=== PATIENT | female | born 1960 | race Caucasian/White ===

== ENCOUNTER 2018-05-27 17:49 | Emergency (ER) | payer OTHER ==
[2018-05-27 17:59] VITALS: BP 149/87; PULSE 83; TEMP 97.9; BMI 22.1
[2018-05-27 18:12] LABS: URINE APPEARANCE CLEAR; URINE BILIRUBIN NEGATIVE (<2.0 mg/dL); URINE COLOR STRAW; URINE GLUCOSE (UA) NEGATIVE (NEGATIVE); URINE KETONE NEGATIVE (NEGATIVE); URINE LEUK ESTERASE NEGATIVE (NEGATIVE); URINE NITRITE NEGATIVE (NEGATIVE); URINE PROTEIN NEGATIVE (NEGATIVE); URINE UROBILINOGEN NEGATIVE mg/dL (0.2-1.0)
--- NOTE | 2018-05-27 18:18 | PDOC ---
History of Present Illness - General Chief Complaint: Urinary Problem Stated Complaint: L.sided abd pain with nausea Time Seen by Provider: 05/27/18 18:17 - History of Present Illness Initial Comments: 05/27/18 18:59 Ms. Manuel is a 57 yo female w/ pmh of HTN who presents for evaluation of 4 day history of left sided abdominal pain. She reports the pain is intermittent and has been accompanied by mild nausea. Denies any other associated symptoms however reports she often has constipation and has not had a BM since Monday. She has taken motrin and tylenol at home without any relief from symptoms and reports she has been urinating frequently over this time period as well. The patient denies chest pain, shortness of breath, headache and dizziness. Denies fever, chills, nausea, vomit, and diarrhea. Denies dysuria, urgency and hematuria. Allergies: NKDA Past History - Past Medical History Allergies/Adverse Reactions: Allergies Allergy/AdvReac Type Severity Reaction Status Date / Time strawberry Allergy Verified 05/27/18 17:58 Home Medications: Ambulatory Orders Aspirin 81 mg PO DAILY 05/27/18 Losartan Potassium [Cozaar -] 50 mg PO DAILY 05/27/18 COPD: No DVT: No - Suicide/Smoking/Psychosocial Hx Smoking History: Never smoked Have you smoked in the past 12 months: No Information on smoking cessation initiated: No Hx Alcohol Use: No Drug/Substance Use Hx: No Substance Use Type: None Review of Systems - Review of Systems Comments:: 05/27/18 19:06 GENERAL/CONSTITUTIONAL: No fever or chills. No weakness. HEAD, EYES, EARS, NOSE AND THROAT: No change in vision. No ear pain or discharge. No sore throat. CARDIOVASCULAR: No chest pain or shortness of breath RESPIRATORY: No cough, wheezing, or hemoptysis. GASTROINTESTINAL: +Intermittent nausea with constipation as described. LLQ pain. No vomiting or diarrhea GENITOURINARY: No dysuria, frequency, or change in urination. MUSCULOSKELETAL: No joint or muscle swelling or pain. No neck or back pain. SKIN: No rash NEUROLOGIC: No headache, vertigo, loss of consciousness, or change in strength/ sensation. ENDOCRINE: No increased thirst. No abnormal weight change HEMATOLOGIC/LYMPHATIC: No anemia, easy bleeding, or history of blood clots. ALLERGIC/IMMUNOLOGIC: No hives or skin allergy. *Physical Exam - Vital Signs Last Vital Signs Temp Pulse Resp BP Pulse Ox 97.9 F 83 16 149/87 100 05/27/18 17:57 05/27/18 17:57 05/27/18 17:57 05/27/18 17:57 05/27/18 17:57 - Physical Exam Comments: 05/27/18 19:07 GENERAL: Awake, alert, and fully oriented, in no acute distress HEAD: No signs of trauma, normocephalic, atraumatic EYES: PERRLA, EOMI, sclera anicteric, conjunctiva clear ENT: Auricles normal inspection, hearing grossly normal, nares patent, oropharynx clear without exudates. Moist mucosa NECK: Normal ROM, supple, no lymphadenopathy, JVD, or masses LUNGS: No distress, speaks full sentences, clear to auscultation bilaterally HEART: Regular rate and rhythm, normal S1 and S2, no murmurs, rubs or gallops, peripheral pulses normal and equal bilaterally. ABDOMEN: +Extreme LLQ TTP. Soft, normoactive bowel sounds. No guarding, no rebound. No masses EXTREMITIES: Normal inspection, Normal range of motion, no edema. No clubbing or cyanosis. NEUROLOGICAL: Cranial nerves II through XII grossly intact. Normal speech, normal gait, no focal sensorimotor deficits SKIN: Warm, Dry, normal turgor, no rashes or lesions noted. ED Treatment Course - LABORATORY CBC & Chemistry Diagram: 05/27/18 18:46 05/27/18 18:42 - ADDITIONAL ORDERS Additional order review: Laboratory Results 05/27/18 18:00 Urine Color Straw Urine Appearance Clear Urine pH 6.0 Ur Specific Virgin 1.003 Urine Protein Negative Urine Glucose (UA) Negative Urine Ketones Negative Urine Blood Negative Urine Nitrite Negative Urine Bilirubin Negative Urine Urobilinogen Negative Ur Leukocyte Esterase Negative Medical Decision Making - Medical Decision Making 05/27/18 20:46 Ms. Manuel is a 57 yo female w/ pmh as described who presents for evaluation of left sided abdominal pain concerning for constipation vs. nephrolithiasis vs. renal colic. Patient evaluated with labs as below. Shortly after presentation patient had acute increase in pain requiring morphine for pain control. CT spiral sent for evaluation. Labs resulted entirely normal, CT spiral normal. 05/27/18 22:27 Transvaginal US ordered for further evaluation of possible pain source likewise negative. No concern for acute process at this time. Suspect origin of pain due to abdominal gas/bloating. Discharging to home. Laboratory Results - last 24 hr 05/27/18 05/27/18 05/27/18 18:00 18:42 18:42 WBC RBC Hgb Hct MCV MCH MCHC RDW Plt Count MPV Absolute Neuts (auto) Neutrophils % Lymphocytes % Monocytes % Eosinophils % Basophils % Nucleated RBC % PT with INR 11.00 INR 0.97 PTT (Actin FS) 29.5 Sodium 142 Potassium 3.8 Chloride 107 Carbon Dioxide 27 Anion Gap 8 BUN 14 Creatinine 0.9 Creat Clearance w eGFR > 60 Random Glucose 90 Lactic Acid Calcium 9.5 Total Bilirubin 0.8 AST 23 ALT 33 Alkaline Phosphatase 57 Total Protein 7.7 Albumin 4.1 Lipase 129 Urine Color Straw Urine Appearance Clear Urine pH 6.0 Ur Specific Virgin 1.003 Urine Protein Negative Urine Glucose (UA) Negative Urine Ketones Negative Urine Blood Negative Urine Nitrite Negative Urine Bilirubin Negative Urine Urobilinogen Negative Ur Leukocyte Esterase Negative Blood Type Antibody Screen 05/27/18 05/27/18 05/27/18 18:42 18:46 18:56 WBC 6.3 RBC 4.66 Hgb 13.5 Hct 40.4 MCV 86.7 MCH 29.0 MCHC 33.4 RDW 14.0 Plt Count 230 MPV 8.2 Absolute Neuts (auto) 2.9 Neutrophils % 46.2 Lymphocytes % 38.7 Monocytes % 9.7 Eosinophils % 4.4 Basophils % 1.0 Nucleated RBC % 0 PT with INR INR PTT (Actin FS) Sodium Potassium Chloride Carbon Dioxide Anion Gap BUN Creatinine Creat Clearance w eGFR Random Glucose Lactic Acid 0.8 Calcium Total Bilirubin AST ALT Alkaline Phosphatase Total Protein Albumin Lipase Urine Color Urine Appearance Urine pH Ur Specific Virgin Urine Protein Urine Glucose (UA) Urine Ketones Urine Blood Urine Nitrite Urine Bilirubin Urine Urobilinogen Ur Leukocyte Esterase Blood Type A POSITIVE Antibody Screen Negative *DC/Admit/Observation/Transfer Diagnosis at time of Disposition: Abdominal gas pain - Discharge Dispostion Disposition: HOME - Referrals Referrals: Reginaldo Polanco MD [Staff Physician] - - Patient Instructions Printed Discharge Instructions: DI for Abdominal Pain-Adult Additional Instructions: Please follow-up with primary care provider in next 1-2 days for further evaluation. Return to ER if any continued pain, fever, chills, inability to eat , or other concerning symptoms. See Packer Denture if symptoms persist. - Post Discharge Activity
[2018-05-27] MEDS ORDERED: morphine CARPU-JECT 4 MG/1 ML DISP.SYRIN IVPUSH ONE (18:45)
[2018-05-27] MEDS ORDERED: ONDANSETRON 4 MG/2 ML VIAL IVPUSH ONE ×2 (18:57→21:02)
[2018-05-27] MEDS ORDERED: morphine SULFATE 4 MG/ML VIAL ONE (19:01)
[2018-05-27 19:05] LABS: EOS % 4.4 % (0-4.5); HEMATOCRIT 40.4 % (32.4-45.2); HEMOGLOBIN 13.5 GM/dL (10.7-15.3); LYMPH % 38.7 % (8-40); MCHC 33.4 g/dl (32.0-36.0); MEAN CELL VOLUME 86.7 fl (80-96); MEAN PLT VOLUME 8.2 fl (7.5-11.1); MONO % 9.7 % (3.8-10.2); NEUT % 46.2 % (42.8-82.8); PLATELET COUNT 230 K/MM3 (134-434); RBC 4.66 M/mm3 (3.60-5.2); WHITE BLOOD COUNT 6.3 K/mm3 (4.0-10.0)
[2018-05-27] MEDS ORDERED: ONDANSETRON 4 MG/2 ML VIAL ONE ×2 (19:12→20:55)
[2018-05-27 19:19] LABS: INR 0.97 (0.82-1.09)
[2018-05-27 19:21] LABS: ACTIVATED PTT 29.5 SECONDS (25.2-36.5)
[2018-05-27 19:28] LABS: ALBUMIN 4.1 g/dl (3.4-5.0); ALK PHOS 57 U/L (45-117); ANION GAP 8 (8-16); BILIRUBIN,TOTAL 0.8 mg/dL (0.2-1.0); BLOOD UREA NITROGEN 14 mg/dL (7-18); CALCIUM 9.5 mg/dL (8.5-10.1); CHLORIDE 107 mmol/L (98-107); CO2 27 mmol/L (21-32); CREATININE 0.9 mg/dL (0.55-1.02); GLUCOSE,RANDOM 90 mg/dL (74-106); LIPASE 129 U/L (73-393); POTASSIUM 3.8 mmol/L (3.5-5.1); SGOT/AST 23 U/L (15-37); SGPT/ALT 33 U/L (12-78); SODIUM 142 mmol/L (136-145); TOT PROT 7.7 g/dl (6.4-8.2)
--- NOTE | 2018-05-27 19:32 | PDOC ---
Attending Attestation - HPI HPI: 05/27/18 19:33 The patient is a 57 year old female, with a significant past medical history of HTN, who presents to the emergency department with, 4 days of left lower quadrant pain. The patient describes her pain as intermittently 10/10 with associated nausea. She has taken Motrin and Tylenol, without improvement. She experiences associated urinary frequency and her last bowel movement was Monday. She denies recent fevers, chills, headache or dizziness. She denies recent or diarrhea. She denies recent dysuria or hematuria. She denies recent chest pain or shortness of breath. Allergies: Simpson. Past surgical history: None reported. Social history: Nonsmoker. Denies EtOH use and recreational drug use. - Physicial Exam PE: 05/27/18 20:21 GENERAL: Awake, alert, and fully oriented, in no acute distress HEAD: No signs of trauma EYES: PERRLA, EOMI, sclera anicteric, conjunctiva clear ENT: Auricles normal inspection, hearing grossly normal, nares patent, oropharynx clear without exudates. Moist mucosa NECK: Normal ROM, supple, no lymphadenopathy, JVD, or masses LUNGS: Breath sounds equal, clear to auscultation bilaterally. No wheezes, and no crackles HEART: Regular rate and rhythm, normal S1 and S2, no murmurs, rubs or gallops +ABDOMEN: Mild left lower quadrant tenderness. Soft, normoactive bowel sounds. No guarding, no rebound. No masses EXTREMITIES: Normal range of motion, no edema. No clubbing or cyanosis. No cords, erythema, or tenderness NEUROLOGICAL: Cranial nerves II through XII grossly intact. Normal speech, normal gait SKIN: Warm, Dry, normal turgor, no rashes or lesions noted. <Divine Allred - Last Filed: 05/27/18 20:21> - Resident Resident Name: Pascual Galindo - ED Attending Attestation I have performed the following: I have examined & evaluated the patient, The case was reviewed & discussed with the resident, I agree w/resident's findings & plan - Medical Decision Making 05/27/18 22:36 Patient Name: JAMEY VALVERDE THIS IS A PRELIMINARY REPORT FROM [facility] DATE OF SERVICE: 2018-05-27 21:17:49 IMAGES: 49 EXAM: Transabdominal and transvaginal pelvic sonogram. Clinical indication: Left lower quadrant abdominal pain. Technique: Transabdominal pelvic sonographic images were obtained. Then transvaginal pelvic sonographic images were provided for increased anatomic detail and diagnostic interpretation. Findings: The visualized portions of the urinary bladder are unremarkable. There is been a prior hysterectomy. The right ovary measures 2.2 x 1.2 x 0.9 cm in diameter and has an unremarkable sonographic appearance. Color Doppler interrogation with spectral analysis demonstrate normal internal arterial flow. The left ovary measures 2.4 x 1.7 x 1.0 cm in diameter and has an unremarkable sonographic appearance. Doppler Doppler interrogation with spectral analysis demonstrates normal internal arterial and venous flow. There is no free fluid within the pelvis. Impression: 1. Prior hysterectomy. 2. Otherwise, unremarkable pelvic sonogram. <Sheela Moreira - Last Filed: 05/27/18 22:37> Attestations - Attestations 05/27/18 19:33 Documentation prepared by Divine Allred, acting as medical collector for Sheela Moreira MD. <Divine Allred - Last Filed: 05/27/18 20:21>
[2018-05-27] MEDS ORDERED: LACTULOSE 20 GM/30 ML UDC (FOR ORAL USE ONLY) PO ONE (20:38)
[2018-05-27] MEDS ORDERED: LACTULOSE 20 GM/30 ML UDC (FOR ORAL USE ONLY) ONE (20:40)
== END 2018-05-27 22:47 | disposition home or self-care (01) ==
LOC: JER 17:49
PROC: 3E033GC Introduction of Other Therapeutic Substance into Peripheral Vein, Percutaneous Approach (ICD-10-PCS; principal; 2018-05-27)
PROC: 3E033NZ Introduction of Analgesics, Hypnotics, Sedatives into Peripheral Vein, Percutaneous Approach (ICD-10-PCS; 2018-05-27)
PROC: 3E033NZ Introduction of Analgesics, Hypnotics, Sedatives into Peripheral Vein, Percutaneous Approach (ICD-10-PCS; 2018-05-27)
DX: R14.1 Gas pain (principal)
CPT/HCPCS: 36415; 74176; 76830-TC; 80053; 81003; 83605; 83690; 85025; 85610; 85730; 86850; 86900; 86901; 87086; 96374; 96375; 96376; 99282-25